=== PATIENT | male | born 1965 | race Caucasian/White ===

== ENCOUNTER 2017-02-12 15:32 | Emergency (ER) | payer SELFPAY ==
[2017-02-12 16:01] VITALS: BP 102/65
[2017-02-12] MEDS ORDERED: Ipratropium 0.5MG/2.5ML NEB* 0.5 MG/2.5 ML NEB.SOLN INH ONE (16:37)
[2017-02-12] MEDS ORDERED: Albuterol 2.5 MG/3 ML NEB.SOL* (0.083%) INH ONE (16:37)
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
[2017-02-12] MEDS ORDERED: predniSONE TAB* 20 MG PO ONE (16:45)
== END 2017-02-12 17:05 | disposition home or self-care (01) ==
LOC: UCCORT 15:32
DX: J06.9 Acute upper respiratory infection, unspecified (principal); J45.31 Mild persistent asthma with (acute) exacerbation
CPT/HCPCS: 99212; G0463; J7512; J7644